=== PATIENT | female | born 1965 | race Caucasian/White ===

== ENCOUNTER 2020-08-07 22:38 | Emergency (ER) | payer OTHER ==
[2020-08-08 01:08] LABS: HEMOGLOBIN 15.1 gm/dl (12.3-15.3); WHITE BLOOD COUNT 2.8 K/UL (4.5-11.0)
[2020-08-08 01:37] LABS: BUN/CREATININE RATIO 18 (0-10)
[2020-08-08] MEDS ORDERED: DECADRON6 MG PO (02:09)
[2020-08-08] MEDS ORDERED: AZITHROMYCIN250 MG PO (02:09)
== END 2020-08-08 02:30 | disposition home or self-care (01) ==
LOC: ER1 22:38
PROVIDERS: Family Medicine
DX: U07.1 COVID-19 (principal); D72.819 Decreased white blood cell count, unspecified; D69.6 Thrombocytopenia, unspecified; I25.10 Atherosclerotic heart disease of native coronary artery without angina pectoris; E78.5 Hyperlipidemia, unspecified; I10 Essential (primary) hypertension; Z79.899 Other long term (current) drug therapy; Z87.891 Personal history of nicotine dependence
CPT/HCPCS: 36600; 71045; 80053; 82550; 82553; 82803; 83605; 83874; 83880; 84484; 85025; 99283